=== PATIENT | male | born 1985 | race American Indian/Alaskan Native ===

== ENCOUNTER 2017-12-30 18:07 | Emergency (ER) | payer OTHER ==
[2017-12-30] MEDS ORDERED: KEPPRA 1,000 MG/NS 0.75% 100ML 1,000 MG/100 ML BAG IV ONE (19:28)
[2017-12-30] MEDS ORDERED: NACL 0.9% 500 ML 500 ML IV ONE (19:39)
--- NOTE | 2017-12-30 19:48 | Emergency Department Report ---
HPI - General Chief Complaint: Syncope Time Seen by Provider: 12/30/17 18:52 - HPI HPI: The patient is a 32-year-old male who presents for evaluation of seizure. Patient has history of less. The patient reports a history of seizures supposedly well prior to arrival. He states that he was at a plasma center giving blood, when he began to feel dizzy. He does not recall the seizure but does recall awakening and his typical postictal state, with tiredness and mild confusion. He currently only complains of mild tiredness and dizziness causes a seizure, exacerbated with position changes, improved with lying down at rest. The patient denies fever, head injury, headache, neck pain, neck stiffness, vision or hearing changes, smell or taste changes, paresthesias, facial drooping , slurred speech, urine or bowel incontinence or retention, or other focal neurological deficit. ED Past Medical Hx - Past Medical History Previous Medical History?: Yes Hx Seizures: Yes - Social History Smoking Status: Never Smoker Substance Use Type: None - Medications Home Medications: Home Medications Medication Instructions Recorded Confirmed Last Taken Type levETIRAcetam [Keppra TAB] 500 mg PO BID #60 tablet 12/30/17 Unknown Rx ED Review of Systems ROS: Stated complaint: POSS SEIZURE Other details as noted in HPI Constitutional: reports tiredness denies: fever ENT: denies: throat or neck pain Respiratory: denies: cough, shortness of breath Cardiovascular: denies: chest pain Endocrine: denies unexplained weight loss or gain Gastrointestinal: denies: abdominal pain, nausea Genitourinary: denies: dysuria Musculoskeletal: denies: leg swelling Skin: denies: rash Neurological: reports seizure denies: headache Hematological/Lymphatic: denies: easy bleeding or easy bruising Psych: denies sadness or hopelessness Physical Exam - Physical Exam Vital Signs: Vital Signs 12/30/17 18:18 Temperature 98 F Pulse Rate 76 Respiratory 16 Rate Blood Pressure 134/66 O2 Sat by Pulse 94 Oximetry Physical Exam: General: well-nourished, well-developed, no acute distress Head: Normocephalic, atraumatic Eyes: normal sclera ENT: Mucous membranes are pale and dry Neck: No neck stiffness, no cervical adenopathy Respiratory: Breath sounds equal bilaterally, no wheezing, rales, or rhonchi Cardio: S1 and S2 present, no murmurs, rubs, gallops, capillary refill is delayed Abdomen: Normoactive bowel sounds, soft abdomen, no rigidity, no guarding or rebound tenderness Chest WALL/Back: No tenderness to palpation of the chest wall, no CVA tenderness with percussion Musc: No pitting edema Skin: No rash Neuro: alert oriented x4, normal cognition, speech normal, PERRL, EOM intact, no facial drooping, no uvula or tongue deviation on protrusion, no deficit with rotation of neck or shoulder shrug, no obvious gross motor deficit in the upper or lower extremities with flexion or extension at the shoulder, elbow, wrist, hip, knee, or ankle bilaterally, no obvious gross sensation deficit to crude touch or 2 pt discrimination, 2+ symmetric reflexes on DTR testing, no coordination deficit with [id number] or [id number] testing, Babinski downgoing, romberg negative, patient able to to ambulate without abnormal gait Psych: Normal affect ED Course Vital Signs 12/30/17 18:18 Temperature 98 F Pulse Rate 76 Respiratory 16 Rate Blood Pressure 134/66 O2 Sat by Pulse 94 Oximetry ED Medical Decision Making - Lab Data Result diagrams: 12/30/17 19:42 12/30/17 19:42 - Medical Decision Making The patient was seen and examined by myself. The patient is placed on a diesel instructor and continuous pulse ox. On initial evaluation, the patient was found to be in no distress. As there are no neuro deficits or other findings on examination concerning for acute intracranial disease process, a CAT scan of the head will not be obtained at this time. The patient is given 1 L normal saline fluid bolus for treatment of his dehydration, and loading dose of IV Keppra for treatment of his seizure. Lab results are unremarkable. The patient was in the emergency department for greater than 2 hours without any seizure-like activity. The patient was reevaluated and reported that their symptoms were markedly improved. The patient is stable for discharge with outpatient follow-up. The patient is given follow-up and return instructions. The patient expressed understanding and agreed with the plan. The patient is discharged in stable condition. Critical care attestation.: If time is entered above; I have spent that time in minutes in the direct care of this critically ill patient, excluding procedure time. ED Disposition Clinical Impression: Seizure disorder, Dehydration Disposition: DC-01 TO HOME OR SELFCARE Is pt being admited?: No Does the pt Need Aspirin: No Condition: Stable Instructions: Epilepsy (ED) Referrals: WANDA MARKS MD [Staff Physician] - 3-5 Days Time of Disposition: 19:51
[2017-12-30 19:59] LABS: Basophils # (Auto) 0.1 K/mm3 (0.0-0.1); Basophils % (Auto) 0.4 % (0.0-1.8); Eosinophils # (Auto) 0.3 K/mm3 (0.0-0.4); Eosinophils % (Auto) 2.3 % (0.0-4.3); Hematocrit 48.3 % (35.5-45.6); Hemoglobin 16.1 gm/dl (11.8-15.2); Lymphocytes # (Auto) 1.5 K/mm3 (1.2-5.4); Lymphocytes % (Auto) 10.9 % (13.4-35.0); Mean Corpuscular HGB Conc 34 % (32-34); Mean Corpuscular Hemoglobin 29 pg (28-32); Mean Corpuscular Volume 85 fl (84-94); Monocytes # (Auto) 0.8 K/mm3 (0.0-0.8); Monocytes % (Auto) 5.8 % (0.0-7.3); Platelet Count 282 K/mm3 (140-440); Red Blood Count 5.66 M/mm3 (3.65-5.03); Red Cell Distribution Width 14.4 % (13.2-15.2)
[2017-12-30 20:16] LABS: BUN/Creatinine Ratio 14; Blood Urea Nitrogen 14 mg/dL (9-20); Calcium 9.3 mg/dL (8.4-10.2); Hemolysis Index 17
[2017-12-30 22:43] VITALS: BP 134/60
== END 2017-12-30 22:44 | disposition home or self-care (01) ==
LOC: ED 18:07
DX: G40.909 Epilepsy, unspecified, not intractable, without status epilepticus (principal); E86.0 Dehydration
CPT/HCPCS: 36415; 80048; 82550; 85025; 93005; 93010; 96365; 99283; G0480; J1953; J7040; 80320

== ENCOUNTER 2018-01-25 11:51 | Emergency (ER) | payer OTHER ==
[2018-01-25 12:37] LABS: Basophils % (Auto) 0.5 % (0.0-1.8); Eosinophils # (Auto) 0.5 K/mm3 (0.0-0.4); Eosinophils % (Auto) 6.7 % (0.0-4.3); Hematocrit 43.2 % (35.5-45.6); Hemoglobin 14.7 gm/dl (11.8-15.2); Lymphocytes # (Auto) 1.5 K/mm3 (1.2-5.4); Lymphocytes % (Auto) 20.9 % (13.4-35.0); Mean Corpuscular HGB Conc 34 % (32-34); Mean Corpuscular Hemoglobin 29 pg (28-32); Mean Corpuscular Volume 85 fl (84-94); Monocytes # (Auto) 0.6 K/mm3 (0.0-0.8); Monocytes % (Auto) 8.1 % (0.0-7.3); Platelet Count 282 K/mm3 (140-440); Red Blood Count 5.06 M/mm3 (3.65-5.03); Red Cell Distribution Width 14.4 % (13.2-15.2)
[2018-01-25] MEDS ORDERED: BOOSTRIX IM ONE (12:52)
[2018-01-25] MEDS ORDERED: XYLOCAINE 1%/ EPI 1:100,000 INFILTRATI ONE ×2 (12:53→15:18)
[2018-01-25 12:54] LABS: Alanine Aminotransferase 31 units/L (7-56); Albumin 4.7 g/dL (3.9-5); BUN/Creatinine Ratio 13; Blood Urea Nitrogen 14 mg/dL (9-20); Calcium 9.4 mg/dL (8.4-10.2); Hemolysis Index 9
[2018-01-25] MEDS ORDERED: KEPPRA 1,000 MG/NS 0.75% 100ML 1,000 MG/100 ML BAG IV ONE (12:59)
[2018-01-25] MEDS ORDERED: NACL 0.9% 1000 ML 1,000 ML IV ONE (12:59)
[2018-01-25] MEDS ORDERED: TYLENOL #3 PO ONE (12:59)
[2018-01-25] MEDS ORDERED: NACL 0.9% 500 ML IR ONE (13:11)
--- NOTE | 2018-01-25 13:18 | Emergency Department Report ---
HPI <JOEY SUMMERS - Last Filed: 01/25/18 16:28> - HPI HPI: The patient is a 32-year-old male with a significant history of epilepsy, who presents for evaluation of seizure. The patient reportsa seizure while at work , possibly time is 1 out of prior to arrival. She sustained injury to the head and laceration to the forehead. He complains of mild stinging quality pain at the side of forehead laceration. He admits to noncompliance with anti- epileptic regimen. The patient denies fever, neck pain, neck stiffness, chest pain, dyspnea, abdominal pain, back pain, pain to the major joints, vision or hearing changes, smell or taste changes, paresthesias, facial drooping, slurred speech, seizure-like activity, urine or bowel incontinence or retention, or other focal neurological deficit. <JABIERJOSE P - Last Filed: 01/25/18 16:36> - General Chief Complaint: Seizure Time Seen by Provider: 01/25/18 12:07 ED Past Medical Hx <JOEY SUMMERS - Last Filed: 01/25/18 16:28> - Past Medical History Hx Seizures: Yes - Surgical History Past Surgical History?: No - Social History Smoking Status: Unknown if ever smoked <JABIERJOSE P - Last Filed: 01/25/18 16:36> - Medications Home Medications: Home Medications Medication Instructions Recorded Confirmed Last Taken Type levETIRAcetam [Keppra TAB] 500 mg PO BID #60 tablet 01/25/18 Unknown Rx ED Review of Systems ROS: Stated complaint: SEIZURE/HEAD LAC Other details as noted in HPI <JOEY SUMMERS - Last Filed: 01/25/18 16:28> ROS: Stated complaint: SEIZURE/HEAD LAC Other details as noted in HPI Constitutional: denies: fever ENT: denies: throat or neck pain Respiratory: denies: cough, shortness of breath Cardiovascular: denies: chest pain Endocrine: denies unexplained weight loss or gain Gastrointestinal: denies: abdominal pain, nausea Genitourinary: denies: dysuria Musculoskeletal: denies: leg swelling Skin: denies: rash Neurological: reports seizure and head pain denies: headache Hematological/Lymphatic: denies: easy bleeding or easy bruising Psych: denies sadness or hopelessness <JOSE EUGENE Jonathan - Last Filed: 01/25/18 16:36> Physical Exam - Physical Exam Vital Signs: Vital Signs 01/25/18 01/25/18 01/25/18 12:00 12:07 12:15 Temperature 98.4 F Pulse Rate 66 89 72 Respiratory 19 19 14 Rate Blood Pressure 129/65 120/56 119/64 O2 Sat by Pulse 93 93 93 Oximetry 01/25/18 01/25/18 12:31 12:46 Temperature Pulse Rate 69 Respiratory 17 19 Rate Blood Pressure 129/65 O2 Sat by Pulse 92 100 Oximetry <JOEY SUMMERSSA - Last Filed: 01/25/18 16:28> - Physical Exam Vital Signs: Vital Signs 01/25/18 01/25/18 01/25/18 12:00 12:07 12:15 Temperature 98.4 F Pulse Rate 66 89 72 Respiratory 19 19 14 Rate Blood Pressure 129/65 120/56 119/64 O2 Sat by Pulse 93 93 93 Oximetry 01/25/18 01/25/18 12:31 12:46 Temperature Pulse Rate 69 Respiratory 17 19 Rate Blood Pressure 129/65 O2 Sat by Pulse 92 100 Oximetry Physical Exam: General: well-nourished, well-developed, no acute distress Head: Normocephalic, 3cm superficial laceration present to forehead Eyes: normal sclera ENT: Mucous membranes are pink and moist Neck: trachea midline, neck supple, No neck stiffness, no cervical adenopathy Respiratory: Breath sounds equal bilaterally, no wheezing, rales, or rhonchi Cardio: S1 and S2 present, no murmurs, rubs, gallops, capillary refill is brisk Abdomen: Normoactive bowel sounds, soft abdomen, no tenderness Chest WALL/Back: No tenderness to palpation of the chest wall, no CVA tenderness with percussion Musc: No pitting edema Skin: No rash Neuro: mildly drowsy, easily arousable, oriented x3, normal cognition, speech normal, PERRL, EOM intact, no facial drooping, no uvula or tongue deviation on protrusion, no deficit with rotation of neck or shoulder shrug, no obvious gross motor deficit in the upper or lower extremities with flexion or extension at the shoulder, elbow, wrist, hip, knee, or ankle bilaterally, no obvious gross sensation deficit to crude touch or 2 pt discrimination, 2+ symmetric reflexes on DTR testing, no coordination deficit with twwxnf-zg-thip or heel-to- mc testing, Babinski downgoing, romberg negative, patient able to to ambulate without abnormal gait Psych: Normal affect <JOSE EUGENE P - Last Filed: 01/25/18 16:36> ED Course Vital Signs 01/25/18 01/25/18 01/25/18 12:00 12:07 12:15 Temperature 98.4 F Pulse Rate 66 89 72 Respiratory 19 19 14 Rate Blood Pressure 129/65 120/56 119/64 O2 Sat by Pulse 93 93 93 Oximetry 01/25/18 01/25/18 12:31 12:46 Temperature Pulse Rate 69 Respiratory 17 19 Rate Blood Pressure 129/65 O2 Sat by Pulse 92 100 Oximetry <JOEY SUMMERS - Last Filed: 01/25/18 16:28> Vital Signs 01/25/18 01/25/18 01/25/18 12:00 12:07 12:15 Temperature 98.4 F Pulse Rate 66 89 72 Respiratory 19 19 14 Rate Blood Pressure 129/65 120/56 119/64 O2 Sat by Pulse 93 93 93 Oximetry 01/25/18 01/25/18 12:31 12:46 Temperature Pulse Rate 69 Respiratory 17 19 Rate Blood Pressure 129/65 O2 Sat by Pulse 92 100 Oximetry <JOSE EUGENE P - Last Filed: 01/25/18 16:36> - Laceration /Wound Repair Left Lateral Frontal Wound Location: face (left lateral frontal) Wound Length (cm): 4 Wound's Depth, Shape: superficial Wound Explored: clean Irrigated w/ Saline (ccs): 3 Betadine Prep?: Yes Anesthesia: Lidocaine w/ Epi (2% lidocaine with epi) Volume Anesthetic (ccs): 1 Wound Debrided: minimal Wound Repaired With: sutures Suture Size/Type: 4:0 Number of Sutures: 5 Layer Closure?: No Sterile Dressing Applied?: Yes <JOEY SUMMERS - Last Filed: 01/25/18 16:28> - Laceration /Wound Repair Left Lateral Frontal Irrigated w/ Saline (ccs): 250 Betadine Prep?: Yes Suture Size/Type: nylon Layer Closure?: No <JOSE EUGENE P - Last Filed: 01/25/18 16:36> ED Medical Decision Making - Lab Data Result diagrams: 01/25/18 12:15 01/25/18 12:15 <JOEY SUMMERS - Last Filed: 01/25/18 16:28> - Lab Data Result diagrams: 01/25/18 12:15 01/25/18 12:15 - Medical Decision Making The patient was seen and examined by myself. The patient is placed on a school bus monitor and continuous pulse ox. On initial evaluation, the patient was found to be in no distress. The patient is given pain medicine, tenderness induration, and IV Keppra for treatment of his epilepsy. IV access is established and the patient is given IV Reglan, Benadryl, and IV Toradol for headache. The patient was reevaluated and reported that their symptoms were markedly improved. The patient is stable for discharge with outpatient follow- up. The patient is given follow-up and return instructions. The patient expressed understanding and agreed with the plan. The patient is discharged in stable condition. <CRYSJOSE BURKS P - Last Filed: 01/25/18 16:36> Critical care attestation.: If time is entered above; I have spent that time in minutes in the direct care of this critically ill patient, excluding procedure time. <JOEY SUMMERS - Last Filed: 01/25/18 16:28> Critical care attestation.: If time is entered above; I have spent that time in minutes in the direct care of this critically ill patient, excluding procedure time. 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 Prescriptions: levETIRAcetam [Keppra TAB] 500 mg PO BID #60 tablet Referrals: PRIMARY CARE, [Primary Care Provider] - 3-5 Days [facility] [Outside] - 3-5 Days
--- NOTE | 2018-01-25 13:27 | Cat Scan Report ---
FINAL REPORT EXAM: CT HEAD/BRAIN WO CON HISTORY: seizure, head injury TECHNIQUE: CT of the head was performed. No intravenous contrast was administered. PRIORS: None. FINDINGS: There is no evidence of intracranial hemorrhage. There is no edema, mass effect or midline shift. There are no abnormal extra-axial fluid collections. The ventricles are appropriate for brain volume. There is no skull fracture seen. Visualized sinuses are opacified. IMPRESSION: There is no acute intracranial abnormality identified. Opacification of visualized sinuses which is concerning for sinusitis.
[2018-01-25] MEDS ORDERED: TYLENOL #3 ONE (16:39)
[2018-01-25 17:58] VITALS: BP 125/74
== END 2018-01-25 16:45 | disposition home or self-care (01) ==
LOC: ED 11:51
DX: S01.81XA Laceration without foreign body of other part of head, initial encounter (principal); G40.309 Generalized idiopathic epilepsy and epileptic syndromes, not intractable, without status epilepticus; W26.8XXA Contact with other sharp object(s), not elsewhere classified, initial encounter; Y93.89 Activity, other specified; Y92.89 Other specified places as the place of occurrence of the external cause; Y99.8 Other external cause status
CPT/HCPCS: 12013; 36415; 70450; 80053; 82550; 83735; 85025; 90471; 90715; 93005; 93010; 96365; 99285; J1953; J7030